=== PATIENT | male | born 1970 | race Caucasian/White ===

== ENCOUNTER 2018-04-06 06:21 | Day surgery (SDC) | payer OTHER ==
[~2018-04-06 06:21] MED LIST: Dextrose 5%-0.45% NaCl 1,000 ML IV SCH; Midazolam 1 MG/ML 2 ML SDV ONE; Sodium Chloride 0.9% 10 ML Syringe FLUSH PRN; fentaNYL 100 MCG/2 ML SDV ONE
[2018-04-06] MEDS ORDERED: Midazolam 1 MG/ML 2 ML SDV IV ONE ×7 (06:22→08:00)
[2018-04-06] MEDS ORDERED: fentaNYL 100 MCG/2 ML SDV IV ONE ×5 (06:22→08:01)
--- NOTE | 2018-04-06 08:35 | OR ---
DATE: 04/06/2018 PROCEDURE: Total colonoscopy. INSTRUMENT USED: PCF-H190 AL Olympus video colonoscope. PREMEDICATIONS: Fentanyl 150 mcg intravenous, Versed 4 mg intravenous. The procedure was done under pulse oximetry, BP recording, and phlebotomy services technician. INDICATION: The patient with rectal bleeding intermittently and persistent right-sided lower abdominal pain, unexplained, and not responsive to medical measures. Colonoscopic examination is done for detection of any polypoid lesions and removal, endoscopic hemostasis therapy if needed. DESCRIPTION OF PROCEDURE: Initial rectal exam showed some anal sphincter spasm. Rigid anoscopy was normal. The colonoscope was passed with ease up to the ileocecal area. Photographs were taken of the normal-appearing cecum identified by landmarks of appendiceal orifice and double-bulged ileocecal folds. No bleeding was noted from any of the visualized areas at the commencement of the examination. No stricture. No vascular ectasia. No large isolated ulcerations seen. No evidence of diffuse inflammatory bowel disease in the form of friability, contact bleeding, or ulcerations. No polyp or tumor mass identified. Probing the proximal sides of folds and flexures, using adequate distention and clearing up the stool material, withdrawal of the scope was made. [id number] time over 6 minutes. No bleeding was noted from any of the visualized areas at the completion of examination. IMPRESSION: Normal study. The patient tolerated the procedure well. [facility] /[id number]
== END 2018-04-06 10:05 | disposition home or self-care (01) ==
LOC: DL.ENDO 06:21
PROVIDERS: ATTEND Internal Medicine Gastroenterology
DX: K62.5 Hemorrhage of anus and rectum (principal); R10.31 Right lower quadrant pain; K59.4 Anal spasm; Z88.0 Allergy status to penicillin
CPT/HCPCS: J2250; J3010; J7042